=== PATIENT | male | born 1965 | race American Indian/Alaskan Native ===

== ENCOUNTER 2021-04-07 21:32 | Emergency (ER) | payer SELFPAY ==
[2021-04-07] MEDS ORDERED: ASPIRIN 325 MG TAB PO ONE (21:48)
[2021-04-07 21:50] VITALS: BP 119/84
--- NOTE | 2021-04-07 22:17 | XRay Report ---
CHEST 2 VIEWS INDICATION / CLINICAL INFORMATION: chest pain, sob. COMPARISON: None available. FINDINGS: SUPPORT DEVICES: None. HEART / MEDIASTINUM: No significant abnormality. LUNGS / PLEURA: No significant pulmonary or pleural abnormality. No pneumothorax. ADDITIONAL FINDINGS: No significant additional findings. IMPRESSION: 1. No acute findings. Signer Name: El Calderon MD Signed: 04/07/2021 10:13 PM Workstation Name: [id number]
[2021-04-07 22:19] LABS: Basophils # (Auto) 0.1 K/mm3 (0.0-0.1); Eosinophils # (Auto) 0.2 K/mm3 (0.0-0.4); Eosinophils % (Auto) 2.7 % (0.0-4.3); Hematocrit 39.2 % (35.5-45.6); Hemoglobin 13.1 gm/dl (11.8-15.2); Lymphocytes # (Auto) 2.2 K/mm3 (1.2-5.4); Lymphocytes % (Auto) 31.8 % (13.4-35.0); Mean Corpuscular HGB Conc 33 % (32-34); Mean Corpuscular Volume 85 fl (84-94); Monocytes # (Auto) 0.5 K/mm3 (0.0-0.8); Monocytes % (Auto) 7.2 % (0.0-7.3); Platelet Count 173 K/mm3 (140-440); Red Blood Count 4.61 M/mm3 (3.65-5.03); Red Cell Distribution Width 13.9 % (13.2-15.2)
[2021-04-07 22:40] LABS: Alanine Aminotransferase 35 units/L (7-56); Albumin 4.8 g/dL (3.9-5); BUN/Creatinine Ratio 17; Blood Urea Nitrogen 19 mg/dL (9-20); Calcium 9.7 mg/dL (8.4-10.2); Hemolysis Index 1
[2021-04-07 23:11] LABS: Bilirubin,Urine NEG (Negative); Blood,Urine NEG (Negative); Color,Urine Yellow (Yellow); Mucus,Urine FEW /HPF; Protein,Urine <15 mg/dL mg/dL (Negative)
[2021-04-08] MEDS ORDERED: ALBUTEROL 2.5 MG/3 ML NEBU IH ONE (03:52)
[2021-04-08] MEDS ORDERED: SIMETHICONE 80 MG CHEW TAB PO ONE (03:53)
--- NOTE | 2021-04-08 03:59 | Emergency Department Report ---
ED Chest Pain HPI - General Chief Complaint: Chest Pain Stated Complaint: CHEST PAIN/BACK PAIN Time Seen by Provider: 04/08/21 03:40 Source: patient Mode of arrival: Ambulatory Limitations: No Limitations - History of Present Illness Initial Comments: This is a 56-year-old -[place] male presents to the emergency department with complaint of some midsternal chest tightness and bilateral back pain that has been going on for "weeks", but worsened today. The patient feels like it is a gas pain "as if I need to burp." Sometimes the patient is able to belch and then get some relief. If he is unable to belch that he says the pain increases. He denies any fever, cough, shortness of breath, lower extremity swelling. Patient lives in [place] and just recently flew down here to visit and is returning on Friday, in 2 days. He has not taken anything for symptoms prior to presentation today. He has a past medical history of hyperlipidemia. Denies any tobacco or illicit drug use. Denies any family history of early cardiac disease or OK. - Related Data Previous Rx's Medication Instructions Recorded Last Taken Type Albuterol Mdi (or & Nicu Only) 2 puff IH QID PRN #8.5 gram 04/08/21 Unknown Rx [ProAir HFA Inhaler] Famotidine [Pepcid] 20 mg PO BID #14 tablet 04/08/21 Unknown Rx Simethicone [Gas Relief] 80 mg PO Q8H PRN #20 tab.chew 04/08/21 Unknown Rx Allergies Allergy/AdvReac Type Severity Reaction Status Date / Time No Known Allergies Allergy Verified 04/08/21 04:50 Heart Score - HEART Score History: Slightly suspicious EKG: Normal Age: 45-65 Risk factors: 1-2 risk factors Troponin: < normal limit HEART Score: 2 - EKG Read Time Time EKG Completed: 21:51 EKG Read Time: 21:59 - Critical Actions Critical Actions: 0-3 pts:0.9-1.7%risk of adverse cardiac event.Candidate for discharge ED Review of Systems ROS: Stated complaint: CHEST PAIN/BACK PAIN Other details as noted in HPI Comment: All other systems reviewed and negative Constitutional: denies: chills, fever Eyes: denies: eye pain, vision change ENT: denies: ear pain, throat pain Respiratory: shortness of breath. denies: cough Cardiovascular: chest pain. denies: palpitations Gastrointestinal: denies: abdominal pain, vomiting Genitourinary: denies: dysuria, discharge Musculoskeletal: back pain. denies: arthralgia Skin: denies: rash, lesions Neurological: denies: headache, weakness ED Past Medical Hx - Medications Home Medications: Home Medications Medication Instructions Recorded Confirmed Last Taken Type Albuterol Mdi (or & Nicu Only) 2 puff IH QID PRN #8.5 gram 04/08/21 Unknown Rx [ProAir HFA Inhaler] Famotidine [Pepcid] 20 mg PO BID #14 tablet 04/08/21 Unknown Rx Simethicone [Gas Relief] 80 mg PO Q8H PRN #20 tab.chew 04/08/21 Unknown Rx ED Physical Exam - General Limitations: No Limitations - Other Other exam information: GENERAL: The patient is well-developed well-nourished. HENT: Normocephalic. Atraumatic. Patient has moist mucous membranes. EYES: Extraocular motions are intact. NECK: Supple. Trachea is midline. CHEST/LUNGS: Clear to auscultation. There is no respiratory distress noted. HEART/CARDIOVASCULAR: Regular. There is no tachycardia. There is no murmur. ABDOMEN: Abdomen is soft, nontender. Patient has normal bowel sounds. SKIN: Skin is warm and dry. NEURO: The patient is awake, alert, and oriented. The patient is cooperative. The patient has no focal neurologic deficits. Normal speech. MUSCULOSKELETAL: There is no tenderness or deformity. There is no limitation range of motion. BACK: No midline thoracic or lumbar tenderness to palpation. No CVA tenderness to palpation. ED Course Vital Signs 04/07/21 21:42 Temperature 98.8 F Pulse Rate 93 H Respiratory 18 Rate Blood Pressure 119/84 O2 Sat by Pulse 97 Oximetry KENN score - Kenn Score Age > 65: (0) No Aspirin use within the Past 7 Days: (0) No 3 or more CAD Risk Factors: (0) No 2 or more Angina events in past 24 hrs: (1) Yes Known CAD with more than 50% Stenosis: (0) No Elevated Cardiac Markers: (0) No ST Deviation Greater than 0.5mm: (0) No KENN Score: 1 ED Medical Decision Making - Lab Data Result diagrams: 04/07/21 21:53 04/07/21 21:53 Lab Results 04/07/21 04/07/21 04/07/21 Range/Units 21:53 21:53 Unknown WBC 7.0 (4.5-11.0) K/mm3 RBC 4.61 (3.65-5.03) M/mm3 Hgb 13.1 (11.8-15.2) gm/dl Hct 39.2 (35.5-45.6) % MCV 85 (84-94) fl MCH 28 (28-32) pg MCHC 33 (32-34) % RDW 13.9 (13.2-15.2) % Plt Count 173 (140-440) K/mm3 Lymph % (Auto) 31.8 (13.4-35.0) % [place] % (Auto) 7.2 (0.0-7.3) % Eos % (Auto) 2.7 (0.0-4.3) % Baso % (Auto) 1.0 (0.0-1.8) % Lymph # (Auto) 2.2 (1.2-5.4) K/mm3 [place] # (Auto) 0.5 (0.0-0.8) K/mm3 Eos # (Auto) 0.2 (0.0-0.4) K/mm3 Baso # (Auto) 0.1 (0.0-0.1) K/mm3 Seg Neutrophils % 57.3 (40.0-70.0) % Seg Neutrophils # 4.0 (1.8-7.7) K/mm3 Sodium 142 (137-145) mmol/L Potassium 3.6 (3.6-5.0) mmol/L Chloride 104.3 (98-107) mmol/L Carbon Dioxide 26 (22-30) mmol/L Anion Gap 15 mmol/L BUN 19 (9-20) mg/dL Creatinine 1.1 (0.8-1.3) mg/dL Estimated GFR > 60 ml/min BUN/Creatinine Ratio 17 % Glucose 111 H (75-100) mg/dL Calcium 9.7 (8.4-10.2) mg/dL Total Bilirubin 0.40 (0.1-1.2) mg/dL AST 28 (5-40) units/L ALT 35 (7-56) units/L Alkaline Phosphatase 56 (35-129) units/L Troponin T < 0.010 (0.00-0.029) ng/mL Total Protein 7.7 (6.3-8.2) g/dL Albumin 4.8 (3.9-5) g/dL Albumin/Globulin Ratio 1.7 % Urine Color Yellow (Yellow) Urine Turbidity Clear (Clear) Urine pH 6.0 (5.0-7.0) Ur Specific [place] 1.016 (1.003-1.030) Urine Protein <15 mg/dl (Negative) mg/dL Urine Glucose (UA) Neg (Negative) mg/dL Urine Ketones Neg (Negative) mg/dL Urine Blood Neg (Negative) Urine Nitrite Neg (Negative) Urine Bilirubin Neg (Negative) Urine Urobilinogen 2.0 (<2.0) mg/dL Ur Leukocyte Esterase Neg (Negative) Urine WBC (Auto) 1.0 (0.0-6.0) /HPF Urine RBC (Auto) 3.0 (0.0-6.0) /HPF Urine Mucus Few /HPF 04/08/21 Range/Units 01:57 WBC (4.5-11.0) K/mm3 RBC (3.65-5.03) M/mm3 Hgb (11.8-15.2) gm/dl Hct (35.5-45.6) % MCV (84-94) fl MCH (28-32) pg MCHC (32-34) % RDW (13.2-15.2) % Plt Count (140-440) K/mm3 Lymph % (Auto) (13.4-35.0) % [place] % (Auto) (0.0-7.3) % Eos % (Auto) (0.0-4.3) % Baso % (Auto) (0.0-1.8) % Lymph # (Auto) (1.2-5.4) K/mm3 [place] # (Auto) (0.0-0.8) K/mm3 Eos # (Auto) (0.0-0.4) K/mm3 Baso # (Auto) (0.0-0.1) K/mm3 Seg Neutrophils % (40.0-70.0) % Seg Neutrophils # (1.8-7.7) K/mm3 Sodium (137-145) mmol/L Potassium (3.6-5.0) mmol/L Chloride (98-107) mmol/L Carbon Dioxide (22-30) mmol/L Anion Gap mmol/L BUN (9-20) mg/dL Creatinine (0.8-1.3) mg/dL Estimated GFR ml/min BUN/Creatinine Ratio % Glucose (75-100) mg/dL Calcium (8.4-10.2) mg/dL Total Bilirubin (0.1-1.2) mg/dL AST (5-40) units/L ALT (7-56) units/L Alkaline Phosphatase (35-129) units/L Troponin T < 0.010 (0.00-0.029) ng/mL Total Protein (6.3-8.2) g/dL Albumin (3.9-5) g/dL Albumin/Globulin Ratio % Urine Color (Yellow) Urine Turbidity (Clear) Urine pH (5.0-7.0) Ur Specific [place] (1.003-1.030) Urine Protein (Negative) mg/dL Urine Glucose (UA) (Negative) mg/dL Urine Ketones (Negative) mg/dL Urine Blood (Negative) Urine Nitrite (Negative) Urine Bilirubin (Negative) Urine Urobilinogen (<2.0) mg/dL Ur Leukocyte Esterase (Negative) Urine WBC (Auto) (0.0-6.0) /HPF Urine RBC (Auto) (0.0-6.0) /HPF Urine Mucus /HPF - EKG Data -: EKG Interpreted by Nv EKG shows normal: sinus rhythm, axis, intervals, QRS complexes, ST-T waves Rate: normal - EKG Data When compared to previous EKG there are: previous EKG unavailable Interpretation: normal EKG - Radiology Data Radiology results: image reviewed interpreted by fl: Chest x-ray does not show any acute process. There are no pleural effusions, obvious pneumonia and there is no pneumothorax. No widened mediastinum. - Medical Decision Making This patient presents to the emergency department with some chest discomfort that appears atypical for ACS. He has increased eructation, which was seen during my examination. Heart and lung sounds are normal to auscultation. The patient does not appear in any respiratory or acute distress. EKG is normal without any morphology consistent with ST elevation myocardial infarction, or any dysrhythmia. Chest x-ray does not show any pneumonia, pleural effusions, pneumothorax, widened mediastinum, or any other acute process. Patient's labs have been unremarkable including CBC, metabolic panel, and negative troponins x2. Patient was given a dose of simethicone and an albuterol breathing treatment. Upon reevaluation he is feeling improved. He is low on the heart and KENN score. He is low on the Wells score criteria and negative on the pulmonary embolism rule out criteria. For these reasons the patient appears safe for discharge home at this time. He was given a prescription for simethicone, Pepcid, and an albuterol inhaler. His contact information has been sent over to the [facility] [place], and someone from their office should be contacting him shortly for close outpatient follow-up as part of our [facility] low risk chest pain protocol. The patient is returning to his home in [place] on Friday, and he was told to follow-up with primary care and cardiology as soon as he is able to do so, if he is unable to see [facility] before he leaves. He will return to the emergency department with any worsening of his symptoms or with any acute distress. Critical Care Time: No Critical care attestation.: If time is entered above; I have spent that time in minutes in the direct care of this critically ill patient, excluding procedure time. ED Disposition Clinical Impression: Atypical chest pain, Back pain Disposition: 01 HOME / SELF CARE / HOMELESS Is pt being admited?: No Condition: Stable Instructions: Acute Back Pain, Adult, Nonspecific Chest Pain, Adult Additional Instructions: Please follow-up with a primary care physician in the next few days. I am sending your contact information over to the [facility] [place], and someone of from their office should be contacting you shortly for close outpatient follow-up. Just in case, I am giving you a referral for one of their laboratory technician, Dr. Lange. If you are unable to set up an outpatient cardiology appointment prior to your return to [place], please see your primary care physician and a laboratory technician as soon as possible. Return to the emergency department with any worsening of your symptoms, new or concerning symptoms not addressed during this current emergency department visit, or with any acute distress. Prescriptions: Simethicone [Gas Relief] 80 mg PO Q8H PRN #20 tab.chew PRN Reason: Gas Pain Famotidine [Pepcid] 20 mg PO BID #14 tablet Albuterol Mdi (or & Nicu Only) [ProAir HFA Inhaler] 2 puff IH QID PRN #8.5 gram PRN Reason: Shortness Of Breath Referrals: PRIMARY CARE,MD [Primary Care Provider] - 2-3 Days TREY LANGE MD [Staff Physician] - 2-3 Days Time of Disposition: 05:06
--- NOTE | 2021-04-10 08:51 | Electrocardiograph Report ---
[facility] Test Date: 2021-04-07 Test Time: 21:51:10 Pat Name: JAZ GALICIA Department: Room: Gender: M [employer]: : 1965 Requested By: PEGGY GAO Order Number: [id number] Reading MD: Isaac Lange Measurements Intervals [place] Rate: 88 P: 72 CA: 155 QRS: 36 QRSD: 93 T: 60 QT: 360 QTc: 435 Interpretive Statements Sinus rhythm No previous ECG available for comparison Electronically Signed On 04-10-2021 8:51:20 EDT by Isaac Lange
== END 2021-04-08 05:15 | disposition home or self-care (01) ==
LOC: ED 21:32
DX: R07.89 Other chest pain (principal); M54.9 Dorsalgia, unspecified; Z79.899 Other long term (current) drug therapy
CPT/HCPCS: 36415; 71046; 80053; 81001; 84484; 85025; 93005; 99283